=== PATIENT | female | born 1995 | race Two or more races ===

== ENCOUNTER 2018-04-08 19:24 | Emergency (ER) | payer OTHER ==
[~2018-04-08] VITALS: Ht 154.9 cm; Wt 44.7 kg
[2018-04-08] MEDS ORDERED: FAMOTIDINE 20 MG TABLET PO ONE (20:00)
[2018-04-08] MEDS ORDERED: FAMOTIDINE 20 MG TABLET ONE (20:05)
[2018-04-08] MEDS ORDERED: hydrOXyzine 50MG TABLET ONE (20:05)
[2018-04-08 22:05] VITALS: BP 121/77
== END 2018-04-08 22:07 | disposition home or self-care (01) ==
LOC: ED 20:07
DX: L50.0 Allergic urticaria (principal); L51.0 Nonbullous erythema multiforme; T37.0X5A Adverse effect of sulfonamides, initial encounter; Y92.89 Other specified places as the place of occurrence of the external cause
CPT/HCPCS: 99284; J7512; Q0177

== ENCOUNTER → 2018-04-19 | Outpatient (CLI) | payer OTHER ==
[2018-04-19 10:39] LABS: BASOPHILS # (AUTO) 0.04 x10^3/uL (0-0.1); BASOPHILS % (AUTO) 0 % (0-1); EOSINOPHILS # (AUTO) 0.06 x10^3/uL (0-0.4); EOSINOPHILS % (AUTO) 1 % (1-7); LYMPHOCYTES # (AUTO) 2.85 x10^3/uL (1-3.4); LYMPHOCYTES % (AUTO) 30 % (22-44); MD NO; MEAN CORPUSCULAR HEMOGLOBIN 30.5 pg (27.0-34.8); MEAN CORPUSCULAR HGB CONC 33.8 g/dL (32.4-35.8); MEAN CORPUSCULAR VOLUME 90.2 fL (80-100); MEAN PLATELET VOLUME 6.3 fL (7.4-10.4); MONOCYTES # (AUTO) 0.38 x10^3/uL (0.2-0.8); MONOCYTES % (AUTO) 4 % (2-9); NEUTROPHILS # (AUTO) 6.33 x10^3/uL (1.8-6.8); NEUTROPHILS % (AUTO) 66 % (42-75); PLATELET COUNT 485 x10^3/uL (130-400); RED BLOOD COUNT 4.36 x10^6/uL (3.82-5.3); RED CELL DISTRIBUTION WIDTH 13.1 % (9.6-15.2)
[2018-04-19 10:43] LABS: ALBUMIN 3.8 g/dL (3.4-5.0); ANION GAP 8 mmol/L (5-15); CALCIUM 9.1 mg/dL (8.5-10.1); CHLORIDE 104 mmol/L (98-107)
[2018-04-19 11:08] LABS: ALANINE AMINOTRANSFERASE 23 U/L (12-78); ALKALINE PHOSPHATASE 40 U/L (45-117); BILIRUBIN,TOTAL 0.8 mg/dL (0.2-1.0); CHOL/HDL RATIO 2.7; CHOLESTEROL, TOTAL 200 mg/dL (140-239); CREATININE 0.63 mg/dL (0.55-1.02); FOLATE LEVEL 19.6 ng/mL (3.1-17.5); HDL CHOL % 37 % (28-40); HDL CHOLESTEROL (DIRECT) 73 mg/dL (40-60); LDL CHOLESTEROL,CALCULATED 74 mg/dL (54-169); THYROID STIMULATING HORMONE 0.429 mIU/L (0.358-3.740); TOTAL PROTEIN 7.7 g/dL (6.4-8.2); TRIGLYCERIDES 267 mg/dL (50-200); VLDL CHOLESTEROL 53 mg/dL (0-25)
== END | disposition home or self-care (01) ==
LOC: LAB 10:21
PROVIDERS: ATTEND Nurse Practitioner
DX: Z00.01 Encounter for general adult medical examination with abnormal findings (principal); R09.81 Nasal congestion
CPT/HCPCS: 36415; 80053; 80061; 82306; 82607; 82746; 84443; 85025

== ENCOUNTER → 2019-01-17 | Outpatient (CLI) | payer OTHER ==
[2019-01-17 14:20] LABS: MEAN CORPUSCULAR HEMOGLOBIN 30.3 pg (27.0-34.8); MEAN CORPUSCULAR HGB CONC 33.1 g/dL (32.4-35.8); MEAN CORPUSCULAR VOLUME 91.6 fL (80-100); MEAN PLATELET VOLUME 7.1 fL (7.4-10.4); PLATELET COUNT 359 x10^3/uL (130-400); RED BLOOD COUNT 4.62 x10^6/uL (3.82-5.3); RED CELL DISTRIBUTION WIDTH 12.3 % (9.6-15.2)
[2019-01-17 14:29] LABS: ALANINE AMINOTRANSFERASE 23 U/L (12-78); ALBUMIN 4.3 g/dL (3.4-5.0); ANION GAP 7 mmol/L (5-15); CALCIUM 9.3 mg/dL (8.5-10.1); CHLORIDE 109 mmol/L (98-107); CHOLESTEROL, TOTAL 169 mg/dL (140-239); CREATININE 0.73 mg/dL (0.55-1.02)
[2019-01-17 14:40] LABS: ALKALINE PHOSPHATASE 79 U/L (45-117); BILIRUBIN,TOTAL 0.7 mg/dL (0.2-1.0); CHOL/HDL RATIO 2.4; HDL CHOL % 41 % (28-40); HDL CHOLESTEROL (DIRECT) 70 mg/dL (40-60); LDL CHOLESTEROL,CALCULATED 81 mg/dL (54-169); LDL/HDL RATIO 1.2 (0.5-3.0); THYROID STIMULATING HORMONE 0.369 mIU/L (0.358-3.740); TOTAL PROTEIN 8.3 g/dL (6.4-8.2); TRIGLYCERIDES 89 mg/dL (50-200); VLDL CHOLESTEROL 18 mg/dL (0-25)
== END | disposition home or self-care (01) ==
LOC: LAB 14:07
PROVIDERS: ATTEND Physician Assistant
DX: E55.9 Vitamin D deficiency, unspecified (principal); E78.1 Pure hyperglyceridemia; Z83.49 Family history of other endocrine, nutritional and metabolic diseases
CPT/HCPCS: 36415; 80053; 80061; 82306; 84443; 85027